=== PATIENT | male | born 1975 | race Caucasian/White ===

== ENCOUNTER 2020-03-23 11:31 | Emergency (ER) | payer OTHER, SELFPAY ==
[2020-03-23 12:09] VITALS: BP 188/101; PULSE 58; RESP 18; TEMP 36.6; O2SAT 100; BMI 32.1
--- NOTE | 2020-03-23 12:27 | ED.ABDPAIN ---
HPI - Abdominal Pain General Chief Complaint: Abdominal Pain <LANCE Noble Last Filed: 03/23/20 22:22> Stated Complaint: flank pain <LANCE Noble Last Filed: 03/23/20 22:22> Time Seen by Provider: 03/23/20 12:08 <LANCE Noble Last Filed: 03/23/20 22:22> Source: patient <LANCE Noble Last Filed: 03/23/20 22:22> Mode of arrival: ambulatory <LANCE Noble Last Filed: 03/23/20 22:22> Limitations: no limitations <LANCE Noble Last Filed: 03/23/20 22:22> History of Present Illness HPI narrative: Patient presents to ED for left flank pain. Patient states history of multiple episodes of kidney stones in both kidneys. Patient states pain started again this morning. Patient denies any hematuria, dysuria, fever, or chills. Patient denies any recent trauma to abdomen, flank, or back area. <LANCE Noble Last Filed: 03/23/20 22:22> MD elicited complaint: flank pain <LANCE Noble Last Filed: 03/23/20 22:22> Related Data Home Medications: Previous Rx's Medication Instructions Recorded naproxen 500 mg PO BID PRN #20 tab 03/23/20 oxycodone-acetaminophen [Percocet] 1 tab PO TID PRN #9 tab 03/23/20 tamsulosin [Flomax] 0.4 mg PO DAILY #14 cap 03/23/20 <LANCE Noble Last Filed: 03/23/20 22:22> Allergies/Adverse Reactions: Allergies Allergy/AdvReac Type Severity Reaction Status Date / Time ketorolac [From Toradol] Allergy Mild swelling Verified 03/25/20 14:17 No Known Drug Allergies Allergy Unknown UNKNOWN Unverified 03/25/20 14:16 <LANCE Noble Last Filed: 03/23/20 22:22> Review of Systems Constitutional: Reports as per HPI and Reports no additional constitutional complaints <LANCE Noble Last Filed: 03/23/20 22:22> Eyes: Reports as per HPI and Reports no additional eye complaints <LANCE Noble - Last Filed: 03/23/20 22:22> Reports system reviewed and no additional complaints, except as documented and Reports as per HPI <LANCE Noble - Last Filed: 03/23/20 22:22> Cardiovascular: Reports as per HPI and Reports no additional cardiovascular complaints <LANCE Noble - Last Filed: 03/23/20 22:22> Respiratory: Reports as per HPI and Reports no additional respiratory complaints <LANCE Noble - Last Filed: 03/23/20 22:22> Gastrointestinal: Reports no additional gastrointestinal complaints and Reports abdominal pain (Left flank pain) <LANCE Noble - Last Filed: 03/23/20 22:22> Genitourinary: Reports no additional male genitourinary complaints and Reports as per HPI <LANCE Noble - Last Filed: 03/23/20 22:22> Musculoskeletal: Reports no additional musculoskeletal complaints and Reports as per HPI <LANCE Noble - Last Filed: 03/23/20 22:22> Reports system reviewed and no additional complaints, except as documented and Reports as per HPI <LANCE Noble - Last Filed: 03/23/20 22:22> Psychiatric: Reports no additional psychiatric complaints and Reports as per HPI <LANCE Noble - Last Filed: 03/23/20 22:22> Physical Exam Vital Signs: Vital Signs: Last Vital Signs Temp 97.8 F 03/23/20 12:09 Pulse 58 03/23/20 12:09 Resp 18 03/23/20 12:09 BP 188/101 H 03/23/20 12:09 Pulse Ox 100 03/23/20 12:09 Body Mass Index 32.1 <LANCE Noble - Last Filed: 03/23/20 22:22> Vital Signs: Last Vital Signs Temp 97.8 F 03/23/20 12:09 Pulse 58 03/23/20 12:09 Resp 18 03/23/20 12:09 BP 188/101 H 03/23/20 12:09 Pulse Ox 100 03/23/20 12:09 Body Mass Index 32.1 <Uziel Oropeza MD - Last Filed: 03/30/20 10:53> Const: General: cooperative, healthy appearing, alert, awake and acute distress <Jose Vicente, PA Lisa Last Filed: 03/23/20 22:22> Orientation/consciousness: patient oriented x3 <Jose Vicente, PA Last Filed: 03/23/20 22:22> HENMT: Head: Yes normal to inspection and Yes No palpable skull fracture present <Jose Vicente, PA Last Filed: 03/23/20 22:22> Eyes: General: appearance normal, both eyes and all related structures <LANCE Noble Last Filed: 03/23/20 22:22> Neck: Neck: Yes normal visual inspection, Yes full ROM, Yes no lymphadenopathy, Yes no meningeal signs, Yes trachea midline, Yes supple and No tender <Jose Vicente, PA Last Filed: 03/23/20 22:22> Chest: Chest palpation & inspection: normal inspection of the chest and normal palpation of entire chest wall <Jose Vicente, PA Last Filed: 03/23/20 22:22> Resp: Effort & Inspection: normal respiratory effort and able to speak in complete sentences <Jose Viecnte, PA Last Filed: 03/23/20 22:22> Auscultation: clear to auscultation bilaterally <Jose Vicente, PA Last Filed: 03/23/20 22:22> Cardio: Jugular venous distension: no JVD <Jose Vicente, PA Last Filed: 03/23/20 22:22> Heart sounds: S1 normal heart sound present and S2 normal heart sound present <Jose Vicente, PA Last Filed: 03/23/20 22:22> GI: Inspection: Yes normal to inspection and No abdominal wall ecchymosis <Jose Vicente, PA Last Filed: 03/23/20 22:22> Palpation (GI): Soft to palpation, not firm, nontender, no guarding and not rigid <Jose Vicente, PA Last Filed: 03/23/20 22:22> : General: Yes CVA tenderness (Left) <LANCE Noble Last Filed: 03/23/20 22:22> Back/Spine/Pelvis: Back: CVA tenderness (Left) <LANCE Noble - Last Filed: 03/23/20 22:22> Skin: General skin exam: no rashes or lesions noted and elasticity normal <LANCE Noble Last Filed: 03/23/20 22:22> Neuro: General: patient oriented x3, no meningeal signs and CN's II-XI intact bilaterally <LANCE Noble - Last Filed: 03/23/20 22:22> Cranial nerves: Yes CN's II-XII intact bilaterally <LANCE Noble - Last Filed: 03/23/20 22:22> Extrem: General: Yes normal to inspection and Yes full ROM <LANCE Noble Last Filed: 03/23/20 22:22> Psych: Appearance: grossly normal, well kempt and not disheveled <LANCE Noble - Last Filed: 03/23/20 22:22> Course Course Course Narrative: History physical exam indicate kidney stone. Patient will have labs, IV fluids, and pain medication. Once urine is given will do abdominal CT scan <LANCE Noble - Last Filed: 03/23/20 22:22> I have reviewed the chart <Uziel Oropeza MD - Last Filed: 03/30/20 10:53> Reevaluation(s) Reevaluation #1: Patient still have not given urine. Patient was sent for dry CT scan to rule out kidney stones. Patient states pain improved with morphine and fluids. pATIENT WAS HYPERTENSIVE DUE TO PAIN. <LANCE Noble - Last Filed: 03/23/20 22:22> Time: 14:07 <LANCE Noble - Last Filed: 03/23/20 22:22> Reevaluation #2: Patient's CT scan shows 1-2 mm kidney stone proximal ureter with hydronephrosis. Patient labs does not show any acute kidney injury. Patient's white blood cell count is normal. Patient will be safe for discharge. <LANCE Noble - Last Filed: 03/23/20 22:22> Time: 14:15 <LANCE Noble - Last Filed: 03/23/20 22:22> Reevaluation #3: UA negative for UTI. Patient was discharged with Flomax and pain medication. Patient was given information to follow-up with urology. rEPEAT bLOOD PRESSURE ON MONITOR IS 150/103. <LANCE Noble - Last Filed: 03/23/20 22:22> Time: 14:29 <LANCE Noble - Last Filed: 03/23/20 22:22> MDM - Abdominal Pain MDM Narrative Medical decision making narrative: Ureter stone <LANCE Noble - Last Filed: 03/23/20 22:22> Lab Data Result diagrams: : 03/23/20 12:30 03/23/20 13:10 <LANCE Noble - Last Filed: 03/23/20 22:22> Labs: Lab Results 03/23/20 03/23/20 03/23/20 Range/Units 12:30 12:30 13:10 WBC 8.4 (4.8-10.8) X10*3/uL RBC 5.04 (4.60-5.80) X10*6/uL Hgb 14.8 (14.0-18.0) g/dl Hct 44.7 (42-52) % MCV 88.7 (80-98) fL MCH 29.4 (27.0-33.0) pg MCHC 33.1 (31.0-36.0) g/dl RDW 12.7 (11.0-16.0) % Plt Count 250 (160-400) X10*3/uL MPV 10.6 (9.4-12.4) fL Immature Gran % (Auto) 0.7 H (0.0-0.4) % Neut % (Auto) 75.3 H (45-73) % Lymph % (Auto) 15.6 L (20-40) % [place] % (Auto) 6.5 (2-11) % Eos % (Auto) 0.8 (0-4) % Baso % (Auto) 1.1 (0-2) % Lymph # (Auto) 1.3 (1.2-4.9) X10*3/uL [place] # (Auto) 0.6 (0.1-1.2) X10*3/uL Eos # (Auto) 0.1 (0.0-0.4) X10*3/uL Baso # (Auto) 0.1 (0.0-0.2) X10*3/uL Abs Immat Gran (auto) 0.06 H (0.00-0.03) X10*3/uL Absolute Neuts (auto) 6.4 (2.0-8.3) X10*3/uL Absolute Nucleated RBC 0.000 (0.0-0.012) X10*3/uL Nucleated RBC % (auto) 0.0 (0.0-0.2) /100WBC PT 11.8 (10.8-13.0) SEC INR 1.0 (0.9-1.1) APTT 30.4 (24.1-38.0) SEC Sodium 140 (135-145) mmol/L Potassium 4.5 (3.3-5.1) mmol/l Chloride 106 (96-108) mmol/L Carbon Dioxide 20 L (22-29) mmol/L Anion Gap 19 (12-20) BUN 14 (9-16) mg/dL Creatinine 1.08 (0.5-1.4) mg/dL Estim Creat Clear Calc 109.5 Estimated GFR > 60 Random Glucose 130 H (60-115) mg/dL Calcium 9.0 (8.4-10.2) mg/dL Total Bilirubin 0.7 (0.0-1.0) mg/dL Direct Bilirubin 0.2 (0.0-0.5) mg/dL AST 21 (5-37) U/L ALT 30 (0-40) U/L Alkaline Phosphatase 90 (39-117) U/L Total Protein 7.4 (6.5-8.0) g/dL Albumin 4.4 (3.5-5.0) g/dL Lipase 34 (8-78) U/L Urine Color Urine Appearance Urine pH (5.0-8.0) Ur Specific [place] (1.005-1.025) Urine Protein (NEG-TRACE) MG/DL Urine Glucose (UA) (NEG) MG/DL Urine Ketones (NEG) MG/DL Urine Blood (NEG) Urine Nitrite (NEG) Ur Leukocyte Esterase (NEG) Urine RBC (0) /HPF Urine WBC (0-4) /HPF Ur Squamous Epith Cells /LPF Amorphous Sediment /LPF Urine Bacteria /LPF Urine Mucus /LPF 03/23/20 Range/Units 13:49 WBC (4.8-10.8) X10*3/uL RBC (4.60-5.80) X10*6/uL Hgb (14.0-18.0) g/dl Hct (42-52) % MCV (80-98) fL MCH (27.0-33.0) pg MCHC (31.0-36.0) g/dl RDW (11.0-16.0) % Plt Count (160-400) X10*3/uL MPV (9.4-12.4) fL Immature Gran % (Auto) (0.0-0.4) % Neut % (Auto) (45-73) % Lymph % (Auto) (20-40) % [place] % (Auto) (2-11) % Eos % (Auto) (0-4) % Baso % (Auto) (0-2) % Lymph # (Auto) (1.2-4.9) X10*3/uL [place] # (Auto) (0.1-1.2) X10*3/uL Eos # (Auto) (0.0-0.4) X10*3/uL Baso # (Auto) (0.0-0.2) X10*3/uL Abs Immat Gran (auto) (0.00-0.03) X10*3/uL Absolute Neuts (auto) (2.0-8.3) X10*3/uL Absolute Nucleated RBC (0.0-0.012) X10*3/uL Nucleated RBC % (auto) (0.0-0.2) /100WBC PT (10.8-13.0) SEC INR (0.9-1.1) APTT (24.1-38.0) SEC Sodium (135-145) mmol/L Potassium (3.3-5.1) mmol/l Chloride (96-108) mmol/L Carbon Dioxide (22-29) mmol/L Anion Gap (12-20) BUN (9-16) mg/dL Creatinine (0.5-1.4) mg/dL Estim Creat Clear Calc Estimated GFR Random Glucose (60-115) mg/dL Calcium (8.4-10.2) mg/dL Total Bilirubin (0.0-1.0) mg/dL Direct Bilirubin (0.0-0.5) mg/dL AST (5-37) U/L ALT (0-40) U/L Alkaline Phosphatase (39-117) U/L Total Protein (6.5-8.0) g/dL Albumin (3.5-5.0) g/dL Lipase (8-78) U/L Urine Color YELLOW Urine Appearance CLEAR Urine pH 8.0 (5.0-8.0) Ur Specific [place] 1.020 (1.005-1.025) Urine Protein NEG (NEG-TRACE) MG/DL Urine Glucose (UA) NEG (NEG) MG/DL Urine Ketones NEG (NEG) MG/DL Urine Blood 2+ H (NEG) Urine Nitrite NEG (NEG) Ur Leukocyte Esterase NEG (NEG) Urine RBC 30-49 H (0) /HPF Urine WBC 1-4 (0-4) /HPF Ur Squamous Epith Cells NONE /LPF Amorphous Sediment 2+ /LPF Urine Bacteria 1+ /LPF Urine Mucus 1+ /LPF <LANCE Noble - Last Filed: 03/23/20 22:22> Lab Results 03/23/20 03/23/20 03/23/20 Range/Units 12:30 12:30 13:10 WBC 8.4 (4.8-10.8) X10*3/uL RBC 5.04 (4.60-5.80) X10*6/uL Hgb 14.8 (14.0-18.0) g/dl Hct 44.7 (42-52) % MCV 88.7 (80-98) fL MCH 29.4 (27.0-33.0) pg MCHC 33.1 (31.0-36.0) g/dl RDW 12.7 (11.0-16.0) % Plt Count 250 (160-400) X10*3/uL MPV 10.6 (9.4-12.4) fL Immature Gran % (Auto) 0.7 H (0.0-0.4) % Neut % (Auto) 75.3 H (45-73) % Lymph % (Auto) 15.6 L (20-40) % [place] % (Auto) 6.5 (2-11) % Eos % (Auto) 0.8 (0-4) % Baso % (Auto) 1.1 (0-2) % Lymph # (Auto) 1.3 (1.2-4.9) X10*3/uL [place] # (Auto) 0.6 (0.1-1.2) X10*3/uL Eos # (Auto) 0.1 (0.0-0.4) X10*3/uL Baso # (Auto) 0.1 (0.0-0.2) X10*3/uL Abs Immat Gran (auto) 0.06 H (0.00-0.03) X10*3/uL Absolute Neuts (auto) 6.4 (2.0-8.3) X10*3/uL Absolute Nucleated RBC 0.000 (0.0-0.012) X10*3/uL Nucleated RBC % (auto) 0.0 (0.0-0.2) /100WBC PT 11.8 (10.8-13.0) SEC INR 1.0 (0.9-1.1) APTT 30.4 (24.1-38.0) SEC Sodium 140 (135-145) mmol/L Potassium 4.5 (3.3-5.1) mmol/l Chloride 106 (96-108) mmol/L Carbon Dioxide 20 L (22-29) mmol/L Anion Gap 19 (12-20) BUN 14 (9-16) mg/dL Creatinine 1.08 (0.5-1.4) mg/dL Estim Creat Clear Calc 109.5 Estimated GFR > 60 Random Glucose 130 H (60-115) mg/dL Calcium 9.0 (8.4-10.2) mg/dL Total Bilirubin 0.7 (0.0-1.0) mg/dL Direct Bilirubin 0.2 (0.0-0.5) mg/dL AST 21 (5-37) U/L ALT 30 (0-40) U/L Alkaline Phosphatase 90 (39-117) U/L Total Protein 7.4 (6.5-8.0) g/dL Albumin 4.4 (3.5-5.0) g/dL Lipase 34 (8-78) U/L Urine Color Urine Appearance Urine pH (5.0-8.0) Ur Specific [place] (1.005-1.025) Urine Protein (NEG-TRACE) MG/DL Urine Glucose (UA) (NEG) MG/DL Urine Ketones (NEG) MG/DL Urine Blood (NEG) Urine Nitrite (NEG) Ur Leukocyte Esterase (NEG) Urine RBC (0) /HPF Urine WBC (0-4) /HPF Ur Squamous Epith Cells /LPF Amorphous Sediment /LPF Urine Bacteria /LPF Urine Mucus /LPF 03/23/20 Range/Units 13:49 WBC (4.8-10.8) X10*3/uL RBC (4.60-5.80) X10*6/uL Hgb (14.0-18.0) g/dl Hct (42-52) % MCV (80-98) fL MCH (27.0-33.0) pg MCHC (31.0-36.0) g/dl RDW (11.0-16.0) % Plt Count (160-400) X10*3/uL MPV (9.4-12.4) fL Immature Gran % (Auto) (0.0-0.4) % Neut % (Auto) (45-73) % Lymph % (Auto) (20-40) % [place] % (Auto) (2-11) % Eos % (Auto) (0-4) % Baso % (Auto) (0-2) % Lymph # (Auto) (1.2-4.9) X10*3/uL [place] # (Auto) (0.1-1.2) X10*3/uL Eos # (Auto) (0.0-0.4) X10*3/uL Baso # (Auto) (0.0-0.2) X10*3/uL Abs Immat Gran (auto) (0.00-0.03) X10*3/uL Absolute Neuts (auto) (2.0-8.3) X10*3/uL Absolute Nucleated RBC (0.0-0.012) X10*3/uL Nucleated RBC % (auto) (0.0-0.2) /100WBC PT (10.8-13.0) SEC INR (0.9-1.1) APTT (24.1-38.0) SEC Sodium (135-145) mmol/L Potassium (3.3-5.1) mmol/l Chloride (96-108) mmol/L Carbon Dioxide (22-29) mmol/L Anion Gap (12-20) BUN (9-16) mg/dL Creatinine (0.5-1.4) mg/dL Estim Creat Clear Calc Estimated GFR Random Glucose (60-115) mg/dL Calcium (8.4-10.2) mg/dL Total Bilirubin (0.0-1.0) mg/dL Direct Bilirubin (0.0-0.5) mg/dL AST (5-37) U/L ALT (0-40) U/L Alkaline Phosphatase (39-117) U/L Total Protein (6.5-8.0) g/dL Albumin (3.5-5.0) g/dL Lipase (8-78) U/L Urine Color YELLOW Urine Appearance CLEAR Urine pH 8.0 (5.0-8.0) Ur Specific [place] 1.020 (1.005-1.025) Urine Protein NEG (NEG-TRACE) MG/DL Urine Glucose (UA) NEG (NEG) MG/DL Urine Ketones NEG (NEG) MG/DL Urine Blood 2+ H (NEG) Urine Nitrite NEG (NEG) Ur Leukocyte Esterase NEG (NEG) Urine RBC 30-49 H (0) /HPF Urine WBC 1-4 (0-4) /HPF Ur Squamous Epith Cells NONE /LPF Amorphous Sediment 2+ /LPF Urine Bacteria 1+ /LPF Urine Mucus 1+ /LPF <Uziel Oropeza MD - Last Filed: 03/30/20 10:53> Discharge Plan Discharge Clinical Impression: Calculus, ureter <LANCE Noble - Last Filed: 03/23/20 22:22> Patient Disposition: Home, Self-Care <LANCE Noble - Last Filed: 03/23/20 22:22> Instructions: Ureteral Stones (ED) <LANCE Noble - Last Filed: 03/23/20 22:22> Additional Instructions: Return to the ED immediately for worsening abdominal pain, flank pain, fever, chills, inability to tolerate solid food/liquid, or any other concerning symptoms. <LANCE Noble - Last Filed: 03/23/20 22:22> Prescriptions: New oxycodone-acetaminophen [Percocet] 5-325 mg tablet 1 tab PO TID PRN (Reason: pain) Qty: 9 RF: 0 tamsulosin [Flomax] 0.4 mg capsule 0.4 mg PO DAILY Qty: 14 RF: 0 naproxen 500 mg tablet 500 mg PO BID PRN (Reason: pain) Qty: 20 RF: 0 <LANCE Noble - Last Filed: 03/23/20 22:22> Referrals: Camacho Jamil MD [Physician] - 2 days (Left ureteral stone.) <LANCE Noble - Last Filed: 03/23/20 22:22> Stand Alone Forms: Work/School Release <LANCE Noble - Last Filed: 03/23/20 22:22> Interventions: ED Discharge Assessment Last Done: 03/23/20 14:42 <LANCE Noble - Last Filed: 03/23/20 22:22> Discharge Date/Time: 03/23/20 14:43 <LANCE Noble - Last Filed: 03/23/20 22:22> Print Language: Greek <LANCE Noble - Last Filed: 03/23/20 22:22> [facility] Past Medical History Medical History: Medical History (Updated 03/25/20 @ 14:43 by Camacho Jamil MD) Renal stones <LANCE Noble - Last Filed: 03/23/20 22:22> Social History Social History: Social History Alcohol intake: never Smoking Status: Never smoker <LANCE Noble - Last Filed: 03/23/20 22:22>
[2020-03-23] MEDS: ondansetron HCL 4 MG/2 ML VIAL IVPUSH (12:31)
[2020-03-23] MEDS: 0.9 % Sodium Chloride 1,000 ML 999 ML IV (12:31)
[2020-03-23] MEDS: Morphine Sulfate 4 MG/ML CARTRIDGE IVPUSH (12:31)
[2020-03-23 12:32] LABS: MANUAL DIFF FLAG NO
[2020-03-23 12:34] LABS: Basophils Absolute Auto 0.1 X10*3/uL (0.0-0.2); Basophils Percent Auto 1.1 % (0-2); Eosinophils Absolute Auto 0.1 X10*3/uL (0.0-0.4); Eosinophils Percent Auto 0.8 % (0-4); Hematocrit 44.7 % (42-52); Hemoglobin 14.8 g/dl (14.0-18.0); Imm Gran Abs Auto 0.06 X10*3/uL (0.00-0.03); Imm Gran Pct Auto 0.7 % (0.0-0.4); Lymphocytes Absolute Auto 1.3 X10*3/uL (1.2-4.9); Lymphocytes Percent Auto 15.6 % (20-40); Mean Corpuscular HGB Conc 33.1 g/dl (31.0-36.0); Mean Corpuscular Hemoglobin 29.4 pg (27.0-33.0); Mean Corpuscular Volume 88.7 fL (80-98); Mean Platelet Volume 10.6 fL (9.4-12.4); Monocytes Absolute Auto 0.6 X10*3/uL (0.1-1.2); Monocytes Percent Auto 6.5 % (2-11); Neutrophils Absolute Auto 6.4 X10*3/uL (2.0-8.3); Neutrophils Percent Auto 75.3 % (45-73); Platelet Count 250 X10*3/uL (160-400); Red Blood Count 5.04 X10*6/uL (4.60-5.80); Red Cell Distribution Width 12.7 % (11.0-16.0); White Blood Count 8.4 X10*3/uL (4.8-10.8)
[2020-03-23 12:40] LABS: Prothrombin Time 11.8 SEC (10.8-13.0)
--- NOTE | 2020-03-23 12:41 | PC.NURSE ---
iv established, blood labs obtained and sent, medicated per emar. awaiting ua spec. wctm.
[2020-03-23 12:43] LABS: Partial Thromboplastin Time 30.4 SEC (24.1-38.0)
--- NOTE | 2020-03-23 13:41 | CT_ITS ---
EXAMINATION: CT ABDOMEN AND PELVIS WITHOUT CONTRAST CLINICAL INFORMATION: Left-sided flank pain. Evaluate for stone. COMPARISON: Previous renal ultrasound July [address] of the abdomen and pelvis March 2012 TECHNIQUE: Multidetector volumetric imaging was performed from the superior aspect of the liver through the pubic symphysis. Sagittal and coronal reformatted images were obtained on the technologist's workstation. This CT examination was performed using dose optimization techniques as appropriate, variously including the following: *Automated exposure control *Adjustment of mA and/or kV according to patient size (this includes techniques or standardized protocols for targeted exams where dose is matched to indication/reason for exam; i.e. extremities or head) *Use of iterative reconstruction technique DLP: 1025 mGy-cm FINDINGS: LUNG BASES: The visualized lung bases are unremarkable. LIVER, GALLBLADDER, AND BILIARY TREE: The liver is normal in size, shape, and attenuation. No focal hepatic lesion or biliary ductal dilatation is present. The gallbladder is unremarkable with no evidence of radiopaque gallstones, gallbladder wall thickening, or obvious pericholecystic inflammatory changes. PANCREAS: Unremarkable. SPLEEN: Unremarkable. ADRENAL GLANDS: Unremarkable. KIDNEYS AND URETERS: There is mild left-sided hydronephrosis from a 1 to 2 mm left proximal ureteral stone. There is a 1 to 2 mm nonobstructing left upper pole renal stone. The right kidney is normal. BLADDER: Unremarkable. GASTROINTESTINAL TRACT: There is mild diverticulosis of the colon. The small and large bowel are otherwise unremarkable. The appendix is unremarkable. ABDOMINAL WALL: No significant hernia is appreciated. LYMPH NODES: Normal. VASCULAR: Unremarkable. PELVIC VISCERA: Unremarkable. OSSEOUS STRUCTURES: Unremarkable. CT/CT abdomen pelvis wo con IMPRESSION: Mild left hydronephrosis from a small 1 to 2 mm left proximal ureteral stone. Small 1 to 2 mm nonobstructing left upper pole renal stone. Mild diverticulosis of the colon.
[2020-03-23 13:50] LABS: Alanine Aminotransferase 30 U/L (0-40); Albumin Level 4.4 g/dL (3.5-5.0); Alkaline Phosphatase 90 U/L (39-117); Anion Gap 19 (12-20); Aspartate Amino Transferase 21 U/L (5-37); Bilirubin Direct 0.2 mg/dL (0.0-0.5); Bilirubin Total 0.7 mg/dL (0.0-1.0); Blood Urea Nitrogen 14 mg/dL (9-16); Carbon Dioxide 20 mmol/L (22-29); Chloride 106 mmol/L (96-108); Creatinine Clr Calc Pharmacy 109.5; Estimated Glomerular Filt Rate > 60; Glucose Random 130 mg/dL (60-115); Lipase 34 U/L (8-78); Potassium 4.5 mmol/l (3.3-5.1); Sodium 140 mmol/L (135-145); Total Protein 7.4 g/dL (6.5-8.0)
[2020-03-23 14:07] LABS: Glucose Urine UA NEG (NEG); Leukocyte Esterase Urine NEG (NEG); Nitrite Urine NEG (NEG); Urine Blood 2+ (NEG); Urine Ketones NEG (NEG); Urine Protein NEG (NEG-TRACE)
[2020-03-23 14:09] LABS: Appearance Urine CLEAR; Color Urine YELLOW
[2020-03-23 14:26] LABS: Amorphous Sediment Urine 2+ /LPF; Bacteria Urine 1+ /LPF; Mucus Urine 1+ /LPF; RBC Urine 30-49 /HPF (0)
== END 2020-03-23 14:43 | disposition home or self-care (01) ==
PROVIDERS: Physician Assistant; Emergency Provider Emergency Medicine
DX: N20.1 Calculus of ureter (principal); R10.9 Unspecified abdominal pain; Z79.899 Other long term (current) drug therapy
CPT/HCPCS: 36415; 74176; 80053; 80076; 81001; 81003; 82248; 83690; 85025; 85610; 85730; 96361; 96374; 96375; 99284; J2270; J2405

== ENCOUNTER → 2020-03-25 13:59 | Outpatient (BNVA) | payer OTHER, SELFPAY | PROVIDERS: Visit Provider Urology ==

== ENCOUNTER 2020-05-12 13:29 | Outpatient (REF) | payer OTHER, SELFPAY ==
--- NOTE | ~2020-05-12 | US_ITS ---
EXAMINATION: US RETROPERITONEAL LIMITED (RENAL ONLY) CLINICAL INFORMATION: Calculus of kidney. COMPARISON: CT abdomen and pelvis 03/23/2020. Renal ultrasound 08/15/2014. TECHNIQUE: Real-time imaging of the kidneys. FINDINGS: RIGHT KIDNEY: 11.3 x 7.1 x 6.3 cm (SAG x AP x TRV). The kidney is normal in size, contour, and echogenicity. Renal cortical thickness is normal. No calculi or focal parenchymal lesions. No hydronephrosis. LEFT KIDNEY: 13.3 x 6.1 x 5.7 cm (SAG x AP x TRV). The kidney is normal in size, contour, and echogenicity. Renal cortical thickness is normal. No calculi or focal parenchymal lesions. No hydronephrosis. US/US renal BI IMPRESSION: Unremarkable renal ultrasound. Previous CT visualized left proximal ureteral stone is not seen at this time. There is no hydronephrosis either.
== END 2020-05-12 13:30 | disposition home or self-care (01) ==
LOC: HO.US 13:29
PROVIDERS: Visit Provider Urology
DX: N20.0 Calculus of kidney (principal)
CPT/HCPCS: 76775

== ENCOUNTER 2021-05-30 15:22 | Emergency (ER) | payer OTHER, SELFPAY ==
[2021-05-30 15:55] VITALS: BP 154/104; PULSE 80; RESP 16; TEMP 37.2; O2SAT 99; BMI 33.3
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
== END 2021-05-30 16:53 | disposition home or self-care (01) ==
PROVIDERS: Emergency Provider Emergency Medicine
DX: S13.4XXA Sprain of ligaments of cervical spine, initial encounter (principal); V43.52XA Car driver injured in collision with other type car in traffic accident, initial encounter; Y93.89 Activity, other specified; Y92.414 Local residential or business street as the place of occurrence of the external cause; Y99.8 Other external cause status
CPT/HCPCS: 99283